=== PATIENT | male | born 1965 | race Caucasian/White ===

== ENCOUNTER 2016-11-05 17:35 | Emergency (ER) | payer SELFPAY ==
[2016-11-05 17:42] VITALS: BP 119/63; PULSE 101; RESP 16; TEMP 98.8; O2SAT 92
--- NOTE | 2016-11-05 17:49 | EDPHY ---
H & P Smoking Status: Never smoked Time Seen by Provider: 11/05/16 17:44 HPI/ROS: CHIEF COMPLAINT: Alcohol abuse, vomiting HISTORY OF PRESENT ILLNESS: Patient is a 51-year-old male who presents to the emergency department with multiple complaints. The patient has a long history of using alcohol. He recently is having relationship issues and his current relationship is coming to an end. Because of this he has increased his alcohol consumption. He is already drank 2-3 pt today. Because he is upset about his break up he has reported that he has suicidal ideation. He wants to shoot himself with a gun. Patient also states that he has been unsteady and fell striking his face. He did not lose consciousness. He has had numerous episodes of vomiting over the past few days. He denies shortness of breath or cough. No fevers or chills. REVIEW OF SYSTEMS: My complete review of systems is negative except as mentioned in the HPI. ( Felecia Santiago) Past Medical/Surgical History: GERD, alcohol abuse, esophageal varices, pancreatitis Social history: The patient drinks alcohol. Uses THC. (Felecia Santiago) Physical Exam: Vitals noted. 37.1, 119/63, 116, 92% on room air GENERAL: No acute distress, alert. HEENT: Eyes normal to inspection, normal pharynx, no signs of dehydration. The patient has an abrasion on his left cheek. No bony tenderness to palpation. NECK: No thyromegaly, no lymphadenopathy, supple. No spinal tenderness palpation. RESPIRATORY: Clear to auscultation bilaterally, no rales, rhonchi or wheezing. CVS: Mild tachycardia with regular rhythm, no rubs, murmurs, or gallops. ABDOMEN: Soft, nontender, nondistended, no organomegaly. BACK: Normal to inspection, no CVA tenderness. SKIN: Normal color, no rash, warm, dry. No pallor. EXTREMITIES: No pedal edema, no calf tenderness, no Homans sign or cords, no joint swelling. NEURO/PSYCH: Alert oriented x2, intoxicated appearing, normal motor sensory exam. No obvious cranial nerve deficit. (Felecia Santiago) Constitutional: Initial Vital Signs Temperature (C) 37.1 C 11/05/16 17:40 Heart Rate 101 H 03/19/17 17:40 Respiratory Rate 16 11/05/16 17:40 Blood Pressure 119/63 11/05/16 17:40 O2 Sat (%) 92 11/05/16 17:40 O2 Delivery Mode Room Air Allergies/Adverse Reactions: No Known Allergies Allergy (Verified 11/05/16 17:40) Home Medications: Medication Instructions Recorded Zantac 11/05/16 Medical Decision Making ED Course/Re-evaluation: In the emergency department I met the patient on arrival. An IV was placed. Patient was given normal saline 1 L IV for hydration. Patient was given Zofran 4 mg IV. I rechecked the patient on numerous occasions. He is stable throughout his stay. Patient was noted to be significantly intoxicated with an alcohol greater than 400. The patient was placed on a mental health hold. I informed the patient of this. He will be evaluated by [facility] once he metabolize his alcohol. My plan is for the patient to be evaluated by [facility]. At this time the patient is still significantly intoxicated. Patient is signed out at change of shift to Dr. Pedro Pablo Soriano. (Felecia Santiago) 2100: I assumed care of this patient from Dr. Santiago at shift change. He is awaiting evaluation once sober. Alcohol level: 447. 2200: I was informed by RN as I left another patient's room that this patient eloped from the hospital. (Pedro Pablo Soriano) Differential Diagnosis: My differential includes but is not limited to suicidal ideation, depression, alcohol intoxication, subarachnoid hemorrhage, subdural hematoma, epidural hematoma, facial fracture, electrolyte abnormality, sugar abnormality, pancreatitis (Felecia Santiago) - Data Points Laboratory Results: Laboratory Results 11/05/16 17:50 11/05/16 17:50 11/05/16 11/05/16 17:50 17:50 WBC 9.48 10^3/uL 10^3/uL (3.80-9.50) RBC 4.84 10^6/uL 10^6/uL (4.40-6.38) Hgb 15.2 g/dL g/dL (13.7-17.5) Hct 43.7 % % (40.0-51.0) MCV 90.3 fL fL (81.5-99.8) MCH 31.4 pg pg (27.9-34.1) MCHC 34.8 g/dL g/dL (32.4-36.7) RDW 14.7 % % (11.5-15.2) Plt Count 364 10^3/uL 10^3/uL (150-400) MPV 8.6 fL L fL (8.7-11.7) Neut % (Auto) 78.0 % H % (39.3-74.2) Lymph % (Auto) 15.2 % % (15.0-45.0) [place] % (Auto) 5.9 % % (4.5-13.0) Eos % (Auto) 0.1 % L % (0.6-7.6) Baso % (Auto) 0.6 % % (0.3-1.7) Nucleat RBC Rel Count 0.0 % % (0.0-0.2) Absolute Neuts (auto) 7.39 10^3/uL H 10^3/uL (1.70-6.50) Absolute Lymphs (auto) 1.44 10^3/uL 10^3/uL (1.00-3.00) Absolute Monos (auto) 0.56 10^3/uL 10^3/uL (0.30-0.80) Absolute Eos (auto) 0.01 10^3/uL L 10^3/uL (0.03-0.40) Absolute Basos (auto) 0.06 10^3/uL 10^3/uL (0.02-0.10) Absolute Nucleated RBC 0.00 10^3/uL 10^3/uL (0-0.01) Immature Gran % 0.2 % % (0.0-1.1) Immature Gran # 0.02 10^3/uL 10^3/uL (0.00-0.10) Sodium 142 mEq/L mEq/L (134-144) Potassium 4.5 mEq/L mEq/L (3.5-5.2) Chloride 97 mEq/L mEq/L (97-110) Carbon Dioxide 20 mEq/l L mEq/l (22-31) Anion Gap 25 mEq/L H mEq/L (8-16) BUN 16 mg/dL mg/dL (7-23) Creatinine 0.8 mg/dL mg/dL (0.7-1.3) Estimated GFR > 60 Glucose 147 mg/dL H mg/dL (70-100) Calcium 10.2 mg/dL mg/dL (8.5-10.4) TSH 1.490 uIU/mL uIU/mL (0.465-4.680) Ethyl Alcohol 477 mg/dL H* mg/dL (0-10) Medications Given: Discontinued Medications Sodium Chloride (Ns) 1,000 mls @ 0 mls/hr IV ONCE ONE PRN Reason: Wide Open Stop: 11/05/16 18:11 Last Admin: 11/05/16 18:11 Dose: 1,000 mls Ondansetron HCl (Zofran) 4 mg IVP EDNOW ONE Stop: 11/05/16 18:11 Last Admin: 11/05/16 18:11 Dose: 4 mg Ondansetron HCl (Zofran) 4 mg IVP EDNOW ONE Stop: 11/05/16 21:22 Last Admin: 11/05/16 21:32 Dose: 4 mg Departure - Departure Clinical Impression: Suicidal ideation Alcoholic intoxication Qualifiers: Complication of substance-induced condition: uncomplicated Qualified Code(s): F10.120 - Alcohol abuse with intoxication, uncomplicated Contusion of face Qualifiers: Encounter type: initial encounter Qualified Code(s): S00.83XA - Contusion of other part of head, initial encounter Condition: Good Instructions: Alcohol Intoxication (ED), Suicide Prevention for Adults (ED) Referrals: [facility],. [Clinic] - 5-7 days, call for appt.
[2016-11-05] MEDS ORDERED: ONDANSETRON 4 MG/2 ML VIAL ONE (17:53)
[2016-11-05] MEDS ORDERED: ONDANSETRON 4 MG/2 ML VIAL IVP ONE ×2 (18:10→21:21)
[2016-11-05] MEDS ORDERED: NS 1,000 ML IV ONE (18:10)
[2016-11-05 18:16] LABS: % IMMATURE GRANULYOCYTES 0.2 % (0.0-1.1); ABSOLUTE IMMATURE GRANULOCYTES 0.02 10^3/uL (0.00-0.10); ADD DIFF? NO; ADD MORPH? NO; ADD SCAN? NO; ATYPICAL LYMPHOCYTE FLAG 10 (0-99); FRAGMENT RBC FLAG 0 (0-99); HEMATOCRIT 43.7 % (40.0-51.0); HEMOGLOBIN 15.2 g/dL (13.7-17.5); LEFT SHIFT FLG 0 (0-99); LIPEMIA HEMOLYSIS FLAG 90 (0-99); MEAN CELL HEMOGLOBIN 31.4 pg (27.9-34.1); MEAN CELL HEMOGLOBIN CONCENTR. 34.8 g/dL (32.4-36.7); MEAN CELL VOLUME 90.3 fL (81.5-99.8); MEAN PLATELET VOLUME 8.6 fL (8.7-11.7); PLATELET CLUMPS FLAG 10 (0-99); PLATELET COUNT 364 10^3/uL (150-400); RED BLOOD CELL COUNT 4.84 10^6/uL (4.40-6.38); RED CELL DISTRIBUTION WIDTH 14.7 % (11.5-15.2)
[2016-11-05 18:26] LABS: ANION GAP 25 mEq/L (8-16); CALCIUM 10.2 mg/dL (8.5-10.4); CARBON DIOXIDE 20 mEq/l (22-31); CHLORIDE 97 mEq/L (97-110); CREATININE 0.8 mg/dL (0.7-1.3); GLOMERULAR FILTRATION RATE > 60; GLUCOSE 147 mg/dL (70-100); POTASSIUM 4.5 mEq/L (3.5-5.2); SODIUM 142 mEq/L (134-144)
[2016-11-05 19:17] LABS: ETHANOL SERUM 477 mg/dL (0-10)
== END 2016-11-05 22:10 | disposition left against medical advice (07) ==
DX: S00.83XA Contusion of other part of head, initial encounter (principal); F10.120 Alcohol abuse with intoxication, uncomplicated; R45.851 Suicidal ideations; W18.09XA Striking against other object with subsequent fall, initial encounter
CPT/HCPCS: 96374; G0480; J2405